=== PATIENT | female | born 1985 | race Caucasian/White ===

== ENCOUNTER 2022-08-25 11:16 | Outpatient (CLI) | payer BC, OTHER ==
[~2022-08-25] VITALS: Ht 170.2 cm; Wt 110.5 kg
[2022-08-25] MEDS ORDERED: FLONASE NASAL S16 GM NS (11:49)
[2022-08-25] MEDS ORDERED: GLUCOPHAGE500 MG/TAB PO (11:50)
[2022-08-25] MEDS ORDERED: INSULIN N (N100 U/ML SQ (11:51)
[2022-08-25] MEDS ORDERED: PROMETRIUM200 M1 PO (11:51)
[2022-08-25] MEDS ORDERED: GLUCOSE TEST ST1 DEV MC (11:52)
[2022-08-25 12:30] VITALS: BP 135/72; PULSE 96
--- NOTE | 2022-08-25 12:38 | NUR ---
37 YO AT 36.4 WEEKS GESTATION TO LR 2 FOR CERVICAL CERCLAGE REMOVAL UNDER SERVICES OF DR FOWLER. PT DENIES FEELING ANY UTERINE CTXS, VAGINAL BLEEDING OR LEAKING FLUID AND REPORTS GOOD ACTIVITY.
--- NOTE | 2022-08-25 12:52 | NUR ---
1200 DR FOWLER AT BEDSIDE, TALKS WITH PATIENT AND ABOUT PROCEDURE. CONSENT SIGNED AT THIS TIME. NO CONTRACTIONS FELT BY PATIETNT OR ON MONITOR. FHT 120 GOOD MOVEMENT NOTED. 1210 POSITIONED PATIENT FOR PROCEDURE. DR FOWLER REMOVED CERCLAGE. PATIENT TOLERTES WELL. DENIES NEEDS AT THIS TIME.
--- NOTE | 2022-08-25 13:16 | NUR ---
1315 NO BLEEDING NOTED, NO CONTRACTIONS. ALL DISCHARGE INSTRUCTIONS GIVEN TO PATIENT AND WITH VERBAL UNDERSTANDING NOTED. ALL QUESTIONS ANSWERED BY THIS NURSE. PATIENT DENIES NEEDS. FHT 120 GOOD MOVEMENT NOTED.
== END 2022-08-25 13:22 | disposition home or self-care (01) ==
LOC: LDRO 11:16
DX: O34.33 Maternal care for cervical incompetence, third trimester (principal); Z3A.36 36 weeks gestation of pregnancy